=== PATIENT | female | born 1970 | race Caucasian/White ===

== ENCOUNTER 2022-05-18 15:36 | Emergency (ER) | payer SELFPAY ==
[2022-05-18 15:57] VITALS: BP 134/89; PULSE 96; RESP 14; TEMP 36.9; O2SAT 97; BMI 38.3
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
[2022-05-18 16:18] VITALS: BP 132/71; PULSE 92; RESP 16; O2SAT 98
--- NOTE | 2022-05-18 16:21 | ECG_ITS ---
[facility] Test Date: 2022-05-18 Pat Name: Jennifer Dhlilon Department: Room: Gender: Female Formwork Carpenter: : 1970 Requested By: Graciela Gordon Order Number: [id number] Ding MD: Maritza Blanton M.D. Measurements Intervals [place] Rate: 91 P: 63 MD: 145 QRS: 3 QRSD: 106 T: 82 QT: 364 QTc: 450 Interpretive Statements SINUS RHYTHM No previous ECG available for comparison Electronically Signed On 05-20-2022 12:06:28 SAIL FINISHER MACHINE by Maritza Blanton M.D. [email or web address]
[2022-05-18 16:27] LABS: Glucose Point of Care 168 mg/dL (70-110)
[2022-05-18 16:28] VITALS: PULSE 87; RESP 16; O2SAT 100
--- NOTE | 2022-05-20 12:14 | DCPLANNER ---
manager community had message to speak with patient about getting established with a primary care physician. manager community called phone number [phone] this number just went to a busy signal, case fitter unable to speak with patient and unable to leave a voicemail for patient.
== END 2022-05-18 16:31 | disposition home or self-care (01) ==
PROVIDERS: Emergency Provider Physician Assistant
DX: E03.9 Hypothyroidism, unspecified; Z76.0 Encounter for issue of repeat prescription; E11.9 Type 2 diabetes mellitus without complications
CPT/HCPCS: 36416; 82962; 93005; 99283